=== PATIENT | female | born 1970 | race Caucasian/White ===

== ENCOUNTER 2020-10-05 06:57 | Outpatient (REF) | payer MEDICAID, SELFPAY ==
--- NOTE | ~2020-10-05 | XR_ITS ---
EXAMINATION: BILATERAL FOOT SERIES CLINICAL INFORMATION: Pain. COMPARISON: None TECHNIQUE: 3 views of the right foot and 3 views of the left foot. FINDINGS: RIGHT FOOT: There is minimal hallux valgus. Cystic change along the medial aspect of the 1st metatarsal. There is slight soft tissue prominence medial to this. There is a tiny plantar calcaneal spur. The bones, joints, and soft tissues are otherwise unremarkable. LEFT FOOT: In the 1st metatarsophalangeal joint there is clustered cystic change along the medial head of the 1st metatarsal. There is no joint space narrowing. Slight soft tissue prominence medial to the cystic change. Small calcaneal spurs. Possible type II accessory navicular, this is a normal variation. XR/XR foot RT min 3V IMPRESSION: RIGHT FOOT: Enthesopathic cystic changes with overlying soft tissue prominence/swelling medial to the 1st metatarsal head. LEFT FOOT: Enthesopathic cystic changes of the medial aspect of the 1st metatarsal head with surrounding soft tissue prominence/swelling. Possible type II accessory navicular. This can be a source of medial sided foot pain in some patients.
--- NOTE | ~2020-10-05 | XR_ITS ---
EXAMINATION: BILATERAL FOOT SERIES CLINICAL INFORMATION: Pain. COMPARISON: None TECHNIQUE: 3 views of the right foot and 3 views of the left foot. FINDINGS: RIGHT FOOT: There is minimal hallux valgus. Cystic change along the medial aspect of the 1st metatarsal. There is slight soft tissue prominence medial to this. There is a tiny plantar calcaneal spur. The bones, joints, and soft tissues are otherwise unremarkable. LEFT FOOT: In the 1st metatarsophalangeal joint there is clustered cystic change along the medial head of the 1st metatarsal. There is no joint space narrowing. Slight soft tissue prominence medial to the cystic change. Small calcaneal spurs. Possible type II accessory navicular, this is a normal variation. XR/XR foot LT min 3V IMPRESSION: RIGHT FOOT: Enthesopathic cystic changes with overlying soft tissue prominence/swelling medial to the 1st metatarsal head. LEFT FOOT: Enthesopathic cystic changes of the medial aspect of the 1st metatarsal head with surrounding soft tissue prominence/swelling. Possible type II accessory navicular. This can be a source of medial sided foot pain in some patients.
== END 2020-10-05 06:58 | disposition home or self-care (01) ==
LOC: HO.XRAY 06:57
PROVIDERS: PCP Nurse Practitioner Family; Visit Provider Nurse Practitioner Family
DX: M79.671 Pain in right foot (principal); M79.672 Pain in left foot
CPT/HCPCS: 73630

== ENCOUNTER 2023-02-18 10:34 | Outpatient (AMB) | payer MEDICAID, SELFPAY ==
--- NOTE | 2023-02-18 10:59 | A.SPINEOV_ITS ---
Intake Intake Visit Reasons: Cervical radiculopathy Assessment & Plan Assessment & Plan (1) Cervical radiculopathy: Code(s): M54.12 - Radiculopathy, cervical region Plan Dear Dr. Whitehead, Thank you for referring Elizabeth to our office today. She is a pleasant 52-year-old female with left sided neck and arm pain. She reports her pain originates in the nape of her posterior neck and radiates d own the dorsal side of her L arm. She states this pain is chronic in nature and has been progressing for years. *Rest of HPI could not be obtained, patient elected to not complete her paperwork, and ended the visit / walked out of exam room when informed we would need to have her obtain cervical spine MRI disc for review before offering interventions. PMH: ischemic stroke, HTN, MDD, Anxiety Social hx: Smokes 1/2 ppd. No ETOH or substance use reported. Medications: Aspirin, Atorvastatin, Chlorthalidone, Venlafaxine Allergies: NKDA Physical exam: Unable to obtain due to patient terminating visit. Imaging review: Reviewed cervical MRI on [facility] with Dr. Simmons, unfortunately her Brain MRI was uploaded as her cervical MRI, and we were not able to review the reported sponyloarthropathy on [facility]. Impression: The patient is a 52-y/o female with a CC of L neck and arm pain. 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 She will need to bring the disc in for review by Dr. Simmons, and may need to come back for a follow up visit depending on what Dr. Simmons is willing to offer her. She did express concerns that she will need to wait for another appointment, and was informed that we will do everything we can to get her in quickly after we were able to review her imaging. Our medical sales specialist did call [facility], and informed them that her brain MRI was uploaded as her cervical MRI, and asked that they upload the correct imaging. We will reach back out to the patient ourselves if we are able to review her imaging and reschedule her. If not she will need to drop of her MRI disc. Thank you for allowing us to care for your patient. The total time spent with this visit with this patient was 45 minutes reviewing history, physical exam, MRI imaging review, and implementation of treatment plan or further diagnostic testing Higinio Simmons MD,PhD [facility] Coding Level of Care Code New Pt Level 4 (26062) Diagnoses Cervical radiculopathy M54.12 Time Spent (min) 35
== END 2023-02-18 11:06 | disposition home or self-care (01) ==
PROVIDERS: PCP Nurse Practitioner Family; Referring Provider Psychiatry & Neurology Neurology; Visit Provider Physician Assistant
DX: M54.12 Radiculopathy, cervical region (principal)
CPT/HCPCS: 99204

== ENCOUNTER → 2023-02-18 10:34 | Outpatient (BNVA) | payer MEDICAID, SELFPAY | PROVIDERS: PCP Nurse Practitioner Family; Visit Provider Physician Assistant | DX: M54.12 Radiculopathy, cervical region (principal) | CPT/HCPCS: 99204 ==

== ENCOUNTER 2023-03-26 09:50 | Outpatient (AMB) | payer MEDICAID, SELFPAY ==
--- NOTE | 2023-03-26 10:50 | HO.SPINEOV ---
Intake Intake Visit Reasons: left sided neck and arm pain. Intake Note: Ms. Romero is here today c/o left sided neck and bilateral arm pain. MRI done @ [facility]/brought disc. Pellet Preparation Operator Required: No Assessment & Plan Assessment & Plan (1) Cervical radiculopathy: Code(s): M54.12 - Radiculopathy, cervical region Plan Dear Dr Whitehead, Thank you for referring MRs Romero to our office today. She is a 53-year-old female, history of IV drug abuse, sober for about 6 months, on methadone, history of coronary disease with recent MRI on Brilinta who has chronic neck pain and chronic bilateral arm pain, worse on the left who is sent for surgical evaluation. She has an MRI done about a year ago showing degenerative disc disease of the neck with varying degrees of foraminal stenosis. She is a difficult historian, but relates a chronic neck pain for many years in her neck going down her arms. There was no specific provocative event. She has weakness of her arms with feelings of dropping things. Denies any gait disturbance. To this point she has done no specific dedicated conservative treatment. Her pain regimen includes Motrin, Tylenol, Percocet, methadone. Records from your office suggested left C7 radiculopathy. 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, she had a heart attack about a year ago or so and has been on Brilinta secondary to his stent, history of hypertension, IV drug abuse, COPD, , cholecystectomy Social hx: She smokes a half a pack a day, denies any other illicit drug use for the last 6 months Medications: Brilinta, Motrin, Tylenol, Percocet, methadone, Effexor, BuSpar, lisinopril, metoprolol, atorvastatin, gabapentin, baby aspirin Allergies: Denies any drug allergies Physical exam: She is awake alert but at times appears to be falling asleep during interactions, she has constant motion back and forth, motor exam is difficult secondary to effort, so I could not do a thorough motor test. No pathological reflexes, no Hinton's, gait appears normal. Imaging review: Cervical MRI done March 2022 shows mild degenerative disc disease with foraminal narrowing at C5-6 bilaterally and C6-7 on the left Impression: 53-year-old female, history of IV drug abuse, sober for 6 months on methadone, Percocet, history of coronary disease still on Brilinta after stent, presents to the office today with chronic neck pain and bilateral arm pain left greater than right, EMG suggests C7 cervical radiculopathy who has intact reflexes. Motor exam is unreliable secondary to patient's effort. At this point she has had no specific conservative treatment, so that would be the 1st place to start. I gave her referral to PT and I will refer her to [facility] for consideration of injection. It is closer to her home as she has to take public transportation. She can get both of those treatments there. She is due to come off the Brilinta soon so hopefully they can plan an injection for her when she is off that. I will get a new MRI just to update the status of the previous findings. Thank you for allowing us to care for your patient. The total time spent with this visit with this patient was 45 minutes reviewing history, physical exam, cervical imaging review, and implementation of treatment plan or further diagnostic testing Rogelio Simmons MD,PhD [facility] Orders: Orders PT Evaluation and Treatment Today M54.12 - Radiculopathy, cervical region MR cervical spine wo con Today M54.12 - Radiculopathy, cervical region Referrals Physiatry Referral M54.12 - Radiculopathy, cervical region Coding Level of Care Code New Pt Level 4 (59618) Diagnoses Cervical radiculopathy M54.12
== END 2023-03-26 12:01 | disposition home or self-care (01) ==
PROVIDERS: PCP Nurse Practitioner Family; Referring Provider Psychiatry & Neurology Neurology; Visit Provider Physician Assistant
DX: M54.12 Radiculopathy, cervical region (principal)
CPT/HCPCS: 99204

== ENCOUNTER → 2023-03-26 09:50 | Outpatient (BNVA) | payer MEDICAID, SELFPAY | PROVIDERS: PCP Nurse Practitioner Family; Visit Provider Physician Assistant | DX: M54.12 Radiculopathy, cervical region (principal) | CPT/HCPCS: 99212 ==

== ENCOUNTER 2023-07-09 18:13 | Outpatient (REF) | payer MEDICAID, SELFPAY ==
[2023-07-10 04:08] LABS: CT PCR NOT DETECTED (Not Detect.); NG PCR NOT DETECTED (Not Detect.)
== END 2023-07-09 18:14 | disposition home or self-care (01) ==
LOC: HO.HHCLNP 18:13
PROVIDERS: Visit Provider Family Medicine
DX: N76.5 Ulceration of vagina (principal)
CPT/HCPCS: 0353U; 36415; 87255

== ENCOUNTER 2023-08-13 14:09 | Outpatient (REF) | payer MEDICAID, SELFPAY ==
[2023-08-13 16:49] LABS: Estimated Average Glucose 105 mg/dL; Hemoglobin A1c % 5.3 % (<6.0)
[2023-08-14 04:02] LABS: HIV AB/AG Nonreactive (Nonreactive); HIV Num 1 0.05 S/CO (0.00-0.99); ~HepC Num1 11.66 S/CO (0.00-0.79); ~Hepatitis C Antibody Reactive (Nonreactive)
[2023-08-14 11:33] LABS: RPR Rapid Plasma Reagin NON-REACTIVE (NON-REACTIVE)
[2023-08-14 19:18] LABS: Herpes Simplex Type 2 IgG 3.24 index
[2023-08-18 14:28] LABS: HCV Log PCR <1.18 NOT DETECTED Log IU/mL (NOT DETECTED); HepC Viral Load <15 NOT DETECTED IU/mL (NOT DETECTED)
== END 2023-08-13 14:10 | disposition home or self-care (01) ==
LOC: HO.HHCL 14:09
PROVIDERS: Visit Provider Family Medicine
DX: B37.9 Candidiasis, unspecified (principal); A64 Unspecified sexually transmitted disease; N76.5 Ulceration of vagina
CPT/HCPCS: 36415; 83036; 86592; 86695; 86696; 86803; 87389; 87522

== ENCOUNTER 2023-08-25 12:34 | Outpatient (REF) | payer MEDICAID, SELFPAY ==
[2023-08-25 13:28] LABS: MANUAL DIFF FLAG NO
[2023-08-25 13:36] LABS: Basophils Absolute Auto 0.1 X10*3/uL (0.0-0.2); Basophils Percent Auto 0.9 % (0-2); Eosinophils Absolute Auto 0.4 X10*3/uL (0.0-0.4); Eosinophils Percent Auto 7.9 % (0-4); Hematocrit 38.9 % (37.0-47.0); Hemoglobin 12.4 g/dl (12.0-16.0); Imm Gran Abs Auto 0.01 X10*3/uL (0.00-0.03); Imm Gran Pct Auto 0.2 % (0.0-0.4); Lymphocytes Absolute Auto 1.2 X10*3/uL (1.2-4.9); Mean Corpuscular HGB Conc 31.9 g/dl (31.0-35.0); Mean Corpuscular Hemoglobin 28.5 pg (27.0-33.0); Mean Corpuscular Volume 89.4 fL (80.0-98.0); Mean Platelet Volume 9.1 fL (9.4-12.3); Monocytes Absolute Auto 0.5 X10*3/uL (0.1-1.2); Monocytes Percent Auto 9.3 % (2-11); Neutrophils Absolute Auto 3.3 x10*3/uL (2.0-8.3); Neutrophils Percent Auto 59.7 % (45-73); Platelet Count 246 X10*3/uL (160-400); Red Blood Count 4.35 X10*6/uL (4.20-5.50); Red Cell Distribution Width 13.2 % (11.0-16.0); White Blood Count 5.6 X10*3/uL (4.8-10.8)
[2023-08-25 13:46] LABS: Appearance Urine Cloudy; Color Urine Yellow; Glucose Urine UA Negative (Negative); Leukocyte Esterase Urine Moderate (2+) (Negative); Nitrite Urine Negative (Negative); PH 5.5 (5.0-9.0); Specific Gravity - Urine 1.015 (1.005-1.025); UMIC TRIGGER UACC YES; Urine Blood Negative (Negative); Urine Ketones Negative (Negative); Urine Protein Negative (Neg-Trace)
[2023-08-25 13:52] LABS: Bacteria Urine 4+ (None Seen); Hyaline Casts Urine 0-2 /LPF (0-2); RBC Urine 0-2 /HPF (0-2); Squamous Epithelial Cell Urine >20 /HPF (0-2); UACC Culture Trigger YES; WBC Urine 21-50 /HPF (0-5)
[2023-08-25 14:11] LABS: Alanine Aminotransferase 14 U/L (0-31); Albumin Level 3.7 g/dL (3.5-5.0); Alkaline Phosphatase 59 U/L (39-117); Anion Gap 9 (12-20); Aspartate Amino Transferase 16 U/L (5-31); Bilirubin Total 0.5 mg/dL (0.0-1.0); Blood Urea Nitrogen 12 mg/dL (9-16); C Reactive Protein 3.13 mg/dL (< or = 0.50); Calcium 9.1 mg/dL (8.4-10.2); Carbon Dioxide 29 mmol/L (22-29); Chloride 104 mmol/L (96-108); Estimated Glomerular Filt Rate > 60; Glucose Random 77 mg/dL (60-115); Potassium 3.5 mmol/L (3.3-5.1); Sodium 138 mmol/L (135-145); Total Protein 7.2 g/dL (6.5-8.0)
[2023-08-25 14:19] LABS: Lactate Dehydrogenase 160 U/L (122-220)
[2023-08-25 14:32] LABS: Erythrocyte Sedimentation Rate 26 MM/HR (0-20)
[2023-08-25 14:35] LABS: TSH reflex Free T4 2.97 uIU/mL (0.32-4.0)
== END 2023-08-25 12:35 | disposition home or self-care (01) ==
LOC: HO.HHCL 12:34
PROVIDERS: Visit Provider General Practice
DX: R63.4 Abnormal weight loss (principal)
CPT/HCPCS: 36415; 80053; 81001; 83615; 84443; 85025; 85652; 86140; 87086

== ENCOUNTER 2024-05-24 13:00 | Outpatient (REF) | payer MEDICAID, SELFPAY ==
[2024-05-24 16:34] LABS: MANUAL DIFF FLAG NO
[2024-05-24 16:49] LABS: Basophils Absolute Auto 0.1 X10*3/uL (0.0-0.2); Basophils Percent Auto 1.3 % (0-2); Eosinophils Absolute Auto 0.5 X10*3/uL (0.0-0.4); Eosinophils Percent Auto 10.1 % (0-4); Hematocrit 33.6 % (37.0-47.0); Hemoglobin 10.5 g/dl (12.0-16.0); Imm Gran Abs Auto 0.01 X10*3/uL (0.00-0.03); Imm Gran Pct Auto 0.2 % (0.0-0.4); Lymphocytes Absolute Auto 1.7 X10*3/uL (1.2-4.9); Lymphocytes Percent Auto 31.4 % (20-40); Mean Corpuscular HGB Conc 31.3 g/dl (31.0-35.0); Mean Corpuscular Hemoglobin 27.9 pg (27.0-33.0); Mean Corpuscular Volume 89.1 fL (80.0-98.0); Monocytes Absolute Auto 0.5 X10*3/uL (0.1-1.2); Monocytes Percent Auto 9.5 % (2-11); Neutrophils Absolute Auto 2.5 x10*3/uL (2.0-8.3); Neutrophils Percent Auto 47.5 % (45-73); Platelet Count 316 X10*3/uL (160-400); Red Blood Count 3.77 X10*6/uL (4.20-5.50); Red Cell Distribution Width 16.1 % (11.0-16.0); White Blood Count 5.3 X10*3/uL (4.8-10.8)
[2024-05-24 17:12] LABS: Alanine Aminotransferase 22 U/L (0-31); Albumin Level 4.1 g/dL (3.5-5.0); Alkaline Phosphatase 64 U/L (39-117); Anion Gap 13 (12-20); Aspartate Amino Transferase 29 U/L (5-31); Bilirubin Total 0.3 mg/dL (0.0-1.0); Blood Urea Nitrogen 22 mg/dL (9-16); Calcium 9.2 mg/dL (8.4-10.2); Carbon Dioxide 28 mmol/L (22-29); Chloride 106 mmol/L (96-108); Estimated Glomerular Filt Rate > 60; Glucose Random 69 mg/dL (60-115); Potassium 3.9 mmol/L (3.3-5.1); Sodium 143 mmol/L (135-145); Total Protein 7.3 g/dL (6.5-8.0)
== END 2024-05-24 13:01 | disposition home or self-care (01) ==
LOC: HO.HHCL 13:00
PROVIDERS: Visit Provider General Practice
DX: R10.11 Right upper quadrant pain (principal)
CPT/HCPCS: 36415; 80053; 85025

== ENCOUNTER 2025-01-06 11:36 | Outpatient (REF) | payer MEDICAID, SELFPAY ==
--- NOTE | ~2025-01-06 | XR_ITS ---
EXAMINATION: XR ABDOMEN KUB CLINICAL INDICATION: chronic constipation COMPARISON: None available. TECHNIQUE: AP view of the abdomen. FINDINGS: Abundant stool throughout the large intestine. No intestinal dilatation. No air-fluid levels. Vascular clips right upper quadrant abdomen likely laparoscopic cholecystectomy. Vascular calcifications in the left upper hemiabdomen and likely splenic artery. Multilevel thoracolumbar spondylosis. Rudimentary ribs, T12. XR/XR KUB IMPRESSION: No intestinal obstruction pattern. Electronically signed by: Ld Coates MD 01/06/2025 12:04 PM EDT
--- OUTSIDE RECORDS SUMMARY | 2025-01-06 12:35 | XMS_ITS | Encounter Summary ---
Author Organization [employer] Address [address] [place] [address] Care Team Providers Care Phone Specialist Name Role Phone Maritza Argueta MD Primary Care Provider [phone] Encounter Details Date Type Department Care Team (Late Contact Info) Description 11/11/2022 Orders Only [facility] [address] [place] [address] [phone] Maritza Argueta MD [address] [place] [address] [phone] Severe obstructive sleep apnea (Primary Dx) Social History Tobacco Use Types Packs/Day Years Used Date Smoking Tobacco: Every Day Cigarettes Smokeless Tobacco: Never Alcohol Use Standard Drinks/Week Comments Never 0 (1 standard drink = 0.6 oz pur e alcohol) Depression Answer Date Recorded Patient Health Questionnaire-9 Score 18 08/13/2022 Depression Answer Date Recorded Patient Health Questionnaire-2 Score 4 08/13/2022 Comments No Sex and Gender Information Value Date Recorded Sex Assigned at Female 05/26/2022 10:36 AM EDT Legal Sex Female 10:36 AM EDT Gender Identity Female 05/26/2022 10:36 AM EDT Sexual Orientation Straight 05/26/2022 10 :36 AM EDT COVID-19 Exposure Response Date Recorded In the last 10 days, have yo u been in contact with someone who was confirmed or suspected to have Coronavirus/COVID-19? No / Unsure 10/24/2022 11:09 AM EDT documented as of this encounter Plan of Treatment Upcoming Encounters Date Type Department Care Team (Late Contact Info) Description 01/13/2025 11:30 AM EDT Office Visit [facility] [address] [place] [address] Maritza Argueta MD [address] [place] [address] documented as of this encounter Visit Diagnoses Diagnosis Severe obstructive sleep apnea- Primary documented in this encounter Additional Health Concerns Assessment Noted Time PHQ-9 Depression Total Score: 18 023 3:00 PM EST documented as of this encounter Care Teams Phone Specialist Relationship Specialty Start Date End Date Maritza Argueta MD [address] [place] [address] PCP - General Family Medicine 03/18/22 [facility] 10/25/24 documented as of this encounter
== END 2025-01-06 11:37 | disposition home or self-care (01) ==
LOC: HO.HHCX 11:36
PROVIDERS: Visit Provider General Practice
DX: K59.03 Drug induced constipation (principal)
CPT/HCPCS: 74018

== ENCOUNTER → 2025-01-06 11:36 | Outpatient (BNV) | payer MEDICAID, SELFPAY | PROVIDERS: Visit Provider Radiology Diagnostic Radiology | DX: K59.00 Constipation, unspecified (principal) | CPT/HCPCS: 74018 ==

== ENCOUNTER 2025-01-19 17:29 | Outpatient (REF) | payer MEDICAID, SELFPAY ==
--- OUTSIDE RECORDS SUMMARY | 2025-01-19 19:57 | XMS_ITS | Encounter Summary ---
Author Organization [employer] Address [address] [place] [address] Care Team Providers Care Grant Writer Name Role Phone Maritza Argueta MD Primary Care Provider [phone] Encounter Details Date Type Department Care Team (Late Contact Info) Description 11/11/2022 Orders Only [facility] [address] [place] [address] [phone] Maritza Argueta MD [address] [place] [address] [phone] Severe obstructive sleep apnea (Primary Dx) Social [...] Department Care Team (Late Contact Info) Description 01/30/2025 11:00 AM EDT Office Visit [address] [address] 02/20/2025 1:00 PM EDT Clinical Support [facility] [address] [place] [address] Marie Zhu, RN documented as of this encounter Visit Diagnoses Diagnosis Severe obstructive sleep apnea- Primary documented in this encounter Additional Health Concerns Assessment Noted Time PHQ-9 Depression Total Score: 18 023 3:00 PM EST documented as of this encounter Care Teams Grant Writer Relationship Specialty Start Date End Date [place] [address] PCP - General Family Medicine 03/18/22 [facility] 10/25/24 documented as of this encounter
[2025-01-25 13:59] LABS: Fentanyl, Ur 1.2; Norfentanyl, Ur NEGATIVE
[2025-01-25 14:10] LABS: Alprazolam, GCMS Urine NEGATIVE; Aminoclonazepam, GCMS Urine NEGATIVE
[2025-01-25 14:11] LABS: Flurazepam Metabolite,GCMS Ur NEGATIVE; Nordiazepam, GCMS Urine NEGATIVE
[2025-01-25 14:12] LABS: Alphahydroxymidazolam,GCMS Ur NEGATIVE; Alphahydroxytriazolam, GCMS Ur NEGATIVE; Lorazepam GCMS Urine NEGATIVE; Oxazepam, GCMS Urine NEGATIVE; Temazepam, GCMS Urine NEGATIVE
== END 2025-01-19 17:30 | disposition home or self-care (01) ==
LOC: HO.HHCLNP 17:29
PROVIDERS: Visit Provider General Practice
DX: Z79.891 Long term (current) use of opiate analgesic (principal)
CPT/HCPCS: 80346; 80354